=== PATIENT | female | born 1955 | race Caucasian/White ===

== ENCOUNTER 2016-12-18 06:16 | Day surgery (SDC) | payer OTHER, MEDICAID ==
[~2016-12-18 06:16] MED LIST: CLINDAMYCIN 900 MG/DEXTROSE 50 ML IV ONE
[2016-12-18] MEDS ORDERED: LR 1,000 ML IV ONE (06:38)
[2016-12-18] MEDS ORDERED: LIDOCAINE 1% 2 ML INJ ID PRN (06:38)
[2016-12-18] MEDS ORDERED: PROTAMINE SULFATE 50 MG/5 ML VIAL IVP ONE (07:03)
[2016-12-18] MEDS ORDERED: PAPAVERINE HCL 60 MG/2 ML SDV ONE (07:03)
[2016-12-18] MEDS ORDERED: THROMBIN (BOVINE) 20,000 UNIT SPRAY TP ONE (07:03)
[2016-12-18] MEDS ORDERED: THROMBIN (BOVINE) 5,000 UNIT VIAL TP ONE (07:03)
[2016-12-18] MEDS ORDERED: BUPIVACAINE 0.5% 30 ML SDV ONE (07:03)
--- NOTE | 2016-12-18 07:07 | PDHPUP ---
History & Physical Update H&P update statement: This history and physical update is based on an assessment of the patient which was completed after admission or registration (within 24 hours), but prior to the surgery/procedure. H&P update: H&P reviewed & patient examined, no change in patient's condition since H&P completed
[2016-12-18 07:11] LABS: % IMMATURE GRANULYOCYTES 0.8 % (0.0-1.1); ABSOLUTE IMMATURE GRANULOCYTES 0.05 10^3/uL (0.00-0.10); ADD DIFF? NO; ADD MORPH? NO; ADD SCAN? NO; ATYPICAL LYMPHOCYTE FLAG 0 (0-99); FRAGMENT RBC FLAG 0 (0-99); HEMATOCRIT 38.7 % (38.0-47.0); HEMOGLOBIN 12.9 g/dL (12.6-16.3); LEFT SHIFT FLG 0 (0-99); LIPEMIA HEMOLYSIS FLAG 80 (0-99); MEAN CELL HEMOGLOBIN 32.2 pg (27.9-34.1); MEAN CELL HEMOGLOBIN CONCENTR. 33.3 g/dL (32.4-36.7); MEAN CELL VOLUME 96.5 fL (81.5-99.8); MEAN PLATELET VOLUME 10.1 fL (8.7-11.7); PLATELET CLUMPS FLAG 10 (0-99); PLATELET COUNT 168 10^3/uL (150-400); RED BLOOD CELL COUNT 4.01 10^6/uL (4.18-5.33); RED CELL DISTRIBUTION WIDTH 12.5 % (11.5-15.2)
[2016-12-18 07:25] LABS: ANION GAP 12 mEq/L (8-16); CARBON DIOXIDE 17 mEq/l (22-31); CHLORIDE 111 mEq/L (97-110); CREATININE 3.4 mg/dL (0.6-1.0); GLOMERULAR FILTRATION RATE 14; GLUCOSE 121 mg/dL (70-100); POTASSIUM 4.4 mEq/L (3.5-5.2); SODIUM 140 mEq/L (134-144)
[2016-12-18] MEDS ORDERED: MIDAZOLAM 2 MG/2 ML VIAL IVP ONE (07:59)
--- NOTE | 2016-12-18 07:59 | PDANEPAE ---
ANE History of Present Illness left AVF ANE Past Medical History - Cardiovascular History Hx Hypertension: Yes Hx Arrhythmias: No Hx Chest Pain: No Hx Coronary Artery / Peripheral Vascular Disease: No Hx CHF / Valvular Disease: No Hx Palpitations: No - Pulmonary History Hx COPD: No Hx Asthma/Reactive Airway Disease: No Hx Recent Upper Respiratory Infection: No Hx Oxygen in Use at Home: No Hx Sleep Apnea: No Sleep Apnea Screening Result - Last Documented: Negative Pulmonary History Comment: PT HAS 02 BUT DOES NOT USE - Neurologic History Hx Cerebrovascular Accident: No Hx Seizures: No Hx Dementia: No - Endocrine History Hx Diabetes: Yes Endocrine History Comment: TYPE 2 - Renal History Hx Renal Disorders: Yes Renal History Comment: DIALYSIS - Liver History Hx Hepatic Disorders: No - Neurological & Psychiatric Hx Hx Neurological and Psychiatric Disorders: Yes Neurological / Psychiatric History Comment: PT LOST DAUGHTER IN CLIMBING ACCIDENT LAST YEAR - Cancer History Hx Cancer: No - Congenital Disorder History Hx Congenital Disorders: No - GI History Hx Gastrointestinal Disorders: No - Other Health History Other Health History: BRUISES EASILY - Chronic Pain History Chronic Pain: No - Surgical History Prior Surgeries: TUBAL LIGATION. MULTIPLE ORAL SURGERIES ANE Review of Systems Review of systems is: negative Review of Systems: - Exercise capacity Exercise capacity: >=4 METS METS (RN): 4 METS ANE Patient History - Allergies Allergies/Adverse Reactions: clindamycin Allergy (Verified 12/18/16 06:44) Penicillins Allergy (Verified 06/11/14 12:42) - Home Medications Home Medications: FLUPHENAZINE HCL 10/15/13 [Last Taken 12/17/16] Insulin 10/15/13 [Last Taken 12/17/16] Lisinopril 10/15/13 [Last Taken 12/17/16] Synthroid 10/15/13 [Last Taken 12/17/16] TEGretol (RX) 10/15/13 [Last Taken 12/17/16] Clindamycin 04/15/15 [Last Taken Unknown] - NPO status NPO Status: no food or drink >8 hours NPO Since - Liquids (Date): 12/18/16 NPO Since - Liquids (Time): 05:00 NPO Since - Solids (Date): 12/17/16 NPO Since - Solids (Time): 23:00 - Anes Hx Anes Hx: no prior problems - Smoking Hx Smoking Status: Current every day smoker - Alcohol Use Alcohol Use: None - Family Anes Hx Family Hx Anesthesia Complications: NONE ANE Labs/Vital Signs - Labs Result Diagrams: 12/18/16 06:55 12/18/16 06:55 - Vital Signs Blood Pressure: 101/70 Heart Rate: 71 Respiratory Rate: 16 O2 Sat (%): 93 Height: 165.1 cm Weight: 72.575 kg ANE Physical Exam - Airway Neck exam: FROM Mallampati Score: Class 1 - Pulmonary Pulmonary: no respiratory distress - Cardiovascular Cardiovascular: regular rate and rhythym - ASA Status ASA Status: III ANE Anesthesia Plan Anesthesia Plan: GA w LMA
[2016-12-18] MEDS ORDERED: ceFAZolin 2 GM/DEXTROSE 100 ML IV ONE (08:01)
[2016-12-18] MEDS ORDERED: MIDAZOLAM 2 MG/2 ML VIAL ONE (08:02)
[2016-12-18] MEDS ORDERED: PROPOFOL 200 MG/20 ML VIAL ONE (08:03)
[2016-12-18] MEDS ORDERED: LIDOCAINE 2% 5 ML SDV ONE (08:03)
[2016-12-18] MEDS ORDERED: fentaNYL 100 MCG/2 ML INJ ONE (08:03)
[2016-12-18] MEDS ORDERED: ONDANSETRON 4 MG/2 ML VIAL IVP PRN (09:03)
[2016-12-18] MEDS ORDERED: fentaNYL 100 MCG/2 ML INJ IVP PRN (09:03)
[2016-12-18] MEDS ORDERED: HYDROmorphONE/DILAUDID 1 MG/ML INJ IVP PRN (09:03)
[2016-12-18] MEDS ORDERED: ALBUTEROL 3 ML DEYVIAL IH PRN (09:03)
[2016-12-18] MEDS ORDERED: NALOXONE HCL 0.4 MG/ML INJ IVP PRN (09:03)
[2016-12-18] MEDS ORDERED: OXYCODONE/APAP 5/325 TAB PO PRN (09:03)
[2016-12-18] MEDS ORDERED: ONDANSETRON 4 MG/2 ML VIAL ONE (09:22)
[2016-12-18] MEDS ORDERED: PHENYLEPHRINE HCL 100 MCG/ML SYR ONE (09:22)
[2016-12-18] MEDS ORDERED: epHEDrine SULFATE 10 MG/ML SYR ONE ×2 (09:22)
--- NOTE | 2016-12-18 09:52 | POSTOPPROG ---
Post Op Note Date of Operation: 12/18/16 Surgeon: Angus Kwok [employer] Driver: Carmela Thomas Anesthesiologist: Alessandro Lambert Anesthesia: GET(General Endotracheal) Pre-op Diagnosis: CRF Post-op Diagnosis: same Procedure: LUE radiocephalic AVF Findings: fair even thrill Inf/Abcess present in the surg proc area at time of surgery?: No EBL: Minimal Complications: none
[2016-12-18] MEDS ORDERED: OXYCODONE/APAP 5/325 TAB ONE (10:44)
--- NOTE | 2016-12-18 11:07 | GOP ---
[f rep st] OPERATIVE REPORT DATE OF OPERATION: 12/18/2016 SURGEON: Angus Kwok MD PROFESSOR OF MEDICINE: MIKAELA Bright ANESTHESIOLOGIST: Dr. Lambert PREOPERATIVE DIAGNOSIS: Chronic renal failure. POSTOPERATIVE DIAGNOSIS: Chronic renal failure. PROCEDURE PERFORMED: 1. Left arm venous mapping with ultrasound. 2. A left radiocephalic arteriovenous fistula. FINDINGS: Patient was found to have a small but adequate cephalic vein at the wrist. It was no bett er above the antecubital space. DESCRIPTION OF PROCEDURE: Patient taken to the operating room where she received satisfactory genera l endotracheal anesthesia by Dr. Lambert. She was placed in supine position with the left arm outst retched on arm board, prepped and draped in usual sterile fashion. The veins of the left arm were ma pped with the ultrasound. The cephalic vein above and below the antecubital space was approximately 3 mm. The cephalic vein was quite a bit bigger at 5.5 mm above the antecubital space. Elected to tr y a radiocephalic vein AV fistula since the radial artery was quite good at the wrist, in spite the p atient being diabetic. The incision was made just above the wrist over the radial artery. Dissectio n was carried down through the fascia. It was encircled with vessel loops. The cephalic vein was di ssected free underneath the radial flap. It was mobilized over to the radial artery. The patient wa s systemically heparinized. After adequate circulation time, the vessels were occluded with vessel l oops. A [id number] anastomosis was made between the cephalic vein and the radial artery with a run bernice 6-0 Prolene suture. The vein had been checked with a 3 mm dilator, which passed easily up the f orearm. Flow was first established through the AV fistula, then back down the hand. The hand remain ed pink, and a good distal pulse in the radial artery and flow in the AV fistula. Hemostasis was ass ured. The heparin was reversed with protamine. Topical thrombin was placed in the wound. The wound was closed with a 3-0 Vicryl. It was infiltrated with 0.5% Marcaine, and the skin was closed with 4 -0 Monocryl subcuticular stitch. The wound was dressed with some Dermabond. She tolerated procedure well, was taken to recovery room in good condition. There were no complications. Copy requested to: Dr. Cruz /[id number]/MODL
[2016-12-18 11:55] VITALS: BP 126/76; PULSE 76; RESP 16; TEMP 97.6; O2SAT 90
== END 2016-12-18 11:45 | disposition home or self-care (01) ==
LOC: FSGY 06:16
PROVIDERS: ATTEND Surgery
PROC: 03180ZD Bypass Left Brachial Artery to Upper Arm Vein, Open Approach (ICD-10-PCS; principal; 2016-12-18 08:00)
DX: N18.6 End stage renal disease (principal); E11.22 Type 2 diabetes mellitus with diabetic chronic kidney disease; I12.9 Hypertensive chronic kidney disease with stage 1 through stage 4 chronic kidney disease, or unspecified chronic kidney disease; F31.9 Bipolar disorder, unspecified; E03.9 Hypothyroidism, unspecified; Z79.4 Long term (current) use of insulin
CPT/HCPCS: J1644; J2250; J2370; J2405; J2440; J2704; J2720; J3010

== ENCOUNTER 2017-02-12 08:07 | Day surgery (SDC) | payer OTHER, MEDICAID ==
[2017-02-12] MEDS ORDERED: levOFLOXACIN 500 MG/DEXTROSE 100 ML IV ONE (08:38)
[2017-02-12] MEDS ORDERED: LR 1,000 ML IV ONE (08:39)
[2017-02-12] MEDS ORDERED: LIDOCAINE 1% 2 ML INJ ID PRN (08:39)
[2017-02-12] MEDS ORDERED: PAPAVERINE HCL 60 MG/2 ML SDV ONE (08:46)
[2017-02-12] MEDS ORDERED: PROTAMINE SULFATE 50 MG/5 ML VIAL IVP ONE (08:46)
[2017-02-12] MEDS ORDERED: THROMBIN (BOVINE) 5,000 UNIT VIAL TP ONE (08:46)
[2017-02-12] MEDS ORDERED: BUPIVACAINE 0.5% 30 ML SDV ONE (08:46)
[2017-02-12] MEDS ORDERED: THROMBIN (BOVINE) 20,000 UNIT SPRAY TP ONE (08:47)
[2017-02-12] MEDS ORDERED: MIDAZOLAM 2 MG/2 ML VIAL IVP ONE (09:12)
--- NOTE | 2017-02-12 09:12 | PDANEPAE ---
ANE History of Present Illness LUE AV fistula ANE Past Medical History - Cardiovascular History Hx Hypertension: Yes Hx Arrhythmias: No Hx Chest Pain: No Hx Coronary Artery / Peripheral Vascular Disease: No Hx CHF / Valvular Disease: No Hx Palpitations: No - Pulmonary History Hx COPD: No Hx Asthma/Reactive Airway Disease: No Hx Recent Upper Respiratory Infection: No Hx Oxygen in Use at Home: No Hx Sleep Apnea: No Pulmonary History Comment: PT HAS 02 BUT DOES NOT USE - Neurologic History Hx Cerebrovascular Accident: No Hx Seizures: No Hx Dementia: No - Endocrine History Hx Diabetes: Yes Endocrine History Comment: TYPE 2 - Renal History Hx Renal Disorders: Yes Renal History Comment: DIALYSIS - Liver History Hx Hepatic Disorders: No - Neurological & Psychiatric Hx Hx Neurological and Psychiatric Disorders: Yes Neurological / Psychiatric History Comment: PT LOST DAUGHTER IN CLIMBING ACCIDENT LAST YEAR - Cancer History Hx Cancer: No - Congenital Disorder History Hx Congenital Disorders: No - GI History Hx Gastrointestinal Disorders: No - Other Health History Other Health History: BRUISES EASILY - Chronic Pain History Chronic Pain: No - Surgical History Prior Surgeries: TUBAL LIGATION. MULTIPLE ORAL SURGERIES ANE Review of Systems Review of systems is: negative Review of Systems: - Exercise capacity Exercise capacity: >=4 METS ANE Patient History - Allergies Allergies/Adverse Reactions: clindamycin Allergy (Verified 12/18/16 06:44) Penicillins Allergy (Verified 06/11/14 12:42) - Home Medications Home medications: home medication list seen and reviewed Home Medications: FLUPHENAZINE HCL 10/15/13 [Last Taken 02/11/17 21:00] Insulin 10/15/13 [Last Taken 02/11/17 21:00] Lisinopril 10/15/13 [Last Taken 02/11/17 10:00] Synthroid 10/15/13 [Last Taken 02/11/17 09:00] TEGretol (RX) 10/15/13 [Last Taken 02/11/17 22:00] - NPO status NPO Status: no food or drink >8 hours - Anes Hx Anes Hx: no prior problems - Smoking Hx Smoking Status: Current every day smoker - Family Anes Hx Family Anes Hx: none Family Hx Anesthesia Complications: NONE ANE Labs/Vital Signs - Labs Result Diagrams: 02/12/17 08:53 - Vital Signs Height: 152.4 cm Weight: 72.575 kg ANE Physical Exam - Airway Neck exam: FROM Mallampati Score: Class 2 Mouth exam: dentures - Pulmonary Pulmonary: no respiratory distress - Cardiovascular Cardiovascular: regular rate and rhythym - ASA Status ASA Status: III ANE Anesthesia Plan Anesthesia Plan: GA w LMA
[2017-02-12] MEDS ORDERED: MIDAZOLAM 2 MG/2 ML VIAL ONE (09:13)
[2017-02-12 09:19] LABS: ANION GAP 12 mEq/L (8-16); CALCIUM 8.7 mg/dL (8.5-10.4); CARBON DIOXIDE 21 mEq/l (22-31); CHLORIDE 110 mEq/L (97-110); CREATININE 3.1 mg/dL (0.6-1.0); GLOMERULAR FILTRATION RATE 15; GLUCOSE 84 mg/dL (70-100); POTASSIUM 4.2 mEq/L (3.5-5.2); SODIUM 143 mEq/L (134-144)
[2017-02-12] MEDS ORDERED: DEXAMETHASONE 4 MG/ML VIAL ONE (09:23)
[2017-02-12] MEDS ORDERED: fentaNYL 100 MCG/2 ML INJ ONE ×2 (09:23→11:38)
[2017-02-12] MEDS ORDERED: PROPOFOL 200 MG/20 ML VIAL ONE (09:23)
[2017-02-12] MEDS ORDERED: LIDOCAINE 2% 100 MG/5 ML SYR ONE (09:23)
[2017-02-12] MEDS ORDERED: ONDANSETRON 4 MG/2 ML VIAL ONE ×2 (09:23→11:48)
[2017-02-12] MEDS ORDERED: PHENYLEPHRINE HCL 100 MCG/ML SYR ONE (09:40)
[2017-02-12] MEDS ORDERED: MEPERIDINE 25 MG/ML SYR IVP PRN (10:45)
[2017-02-12] MEDS ORDERED: PROMETHAZINE HCL 25 MG/ML INJ IVP PRN (10:45)
[2017-02-12] MEDS ORDERED: ONDANSETRON 4 MG/2 ML VIAL IVP PRN (10:45)
[2017-02-12] MEDS ORDERED: NALOXONE HCL 0.4 MG/ML INJ IVP PRN (10:45)
[2017-02-12] MEDS ORDERED: OXYCODONE/APAP 5/325 TAB PO PRN (10:45)
[2017-02-12] MEDS ORDERED: ACETAMINOPHEN 500 MG TAB PO PRN (10:45)
[2017-02-12] MEDS ORDERED: HYDROmorphONE/DILAUDID 1 MG/ML INJ IVP PRN (10:45)
[2017-02-12] MEDS ORDERED: LABETALOL HCL 50 MG/10 ML SYR IVP PRN (10:45)
[2017-02-12] MEDS ORDERED: ALBUTEROL 3 ML DEYVIAL IH PRN (10:45)
[2017-02-12] MEDS ORDERED: HYDROCODONE/APAP 5/325 TAB PO PRN (10:45)
[2017-02-12] MEDS ORDERED: DEXAMETHASONE 4 MG/ML VIAL IVP PRN (10:45)
--- NOTE | 2017-02-12 10:47 | POSTANESTH ---
Post Anesthetic Evaluation Cardiovascular Status: Similar to Pre-Op Cond Respiratory Status: Similar to Pre-op Cond. Level of Consciousness/Mental Status: Can Participate in Eval, Moderately Sleepy Pain Control: Adequate, Prn Tx Ordered Nausea/Vomiting Control: Adequate, Prn Tx Ordered Complications Possibly Related to Anesthesia: None Noted
[2017-02-12] MEDS: fentaNYL 100 MCG/2 ML INJ IVP PRN ×2 (11:41→11:54)
[2017-02-12] MEDS ORDERED: OXYCODONE/APAP 5/325 TAB ONE (11:44)
[2017-02-12 13:10] VITALS: BP 106/72
[2017-02-12 13:30] VITALS: PULSE 74; RESP 16; TEMP 97.8; O2SAT 93
--- NOTE | 2017-02-24 12:37 | GOP ---
[f rep st] OPERATIVE REPORT DATE OF OPERATION: SURGEON: Angus Kwok MD RECEPTIONIST NURSE: Carmela Thomas, PAC. ANESTHESIOLOGIST: Dr. Coronel. PREOPERATIVE DIAGNOSIS: 1. Chronic renal failure. 2. Failed radiocephalic arteriovenous fistula. POSTOPERATIVE DIAGNOSIS: 1. Chronic renal failure. 2. Failed radiocephalic arteriovenous fistula. PROCEDURE PERFORMED: Ultrasound vein mapping of the left arm, with a left basilic vein transposition arteriovenous fistula. FINDINGS: DESCRIPTION OF PROCEDURE: Patient taken to the operating room, where she received satisfactory gener al endotracheal anesthesia by Dr. Coronel. She was placed in a supine position, with the left arm o utstretched on an arm board, prepped and draped in the usual sterile fashion. Using ultrasound, the veins of the arm were evaluated, as well as a radiocephalic fistula, which did not appear to have ashlee quate flow. In the upper arm, the cephalic vein was not adequate either, and the basilic vein was se lected. A longitudinal incision was made over the basilic vein in the medial aspect of the arm. It was dissected free for several inches, and then elevated up. Multiple branches were ligated and divi ded. The vein was then transposed to a more superficial and anterior position. The brachial artery had been dissected free, controlled with vessel loops. The patient was systemically heparinized. An end-to-side anastomosis was made between the basilic vein and the brachial artery using running 6-0 Prolene suture. Flow was first established through the AV fistula, and then back down the arm to the hand. Maintained a good radial pulse and a good flow in the fistula, which was sitting in a subderm al position. Hemostasis was assured. Heparin was reversed with protamine. The wound was infiltrate d with 0.5% Marcaine. Some topical thrombin was sprayed over the wound, and the wound was closed wit h a running 3-0 Vicryl for the subcutaneous tissue, skin shikha for the skin. A 15 round silicone J P drain was brought out through a separate stab incision, secured to the skin with a silk suture. David mendez tolerated the procedure well, was taken to the recovery room in good condition. /[id number]/MODL
== END 2017-02-12 13:15 | disposition home or self-care (01) ==
LOC: FSGY 08:07
PROVIDERS: ATTEND Surgery
PROC: 03180ZD Bypass Left Brachial Artery to Upper Arm Vein, Open Approach (ICD-10-PCS; principal; 2017-02-12 09:45)
DX: N18.6 End stage renal disease (principal); F17.200 Nicotine dependence, unspecified, uncomplicated; Z88.0 Allergy status to penicillin
CPT/HCPCS: J1100; J1644; J1956; J2001; J2250; J2370; J2405; J2440; J2704; J2720; J3010

== ENCOUNTER → 2017-11-29 | Outpatient (CLI) | payer OTHER, MEDICAID | LOC: FIMAGING 08:59 | PROVIDERS: ATTEND Internal Medicine Nephrology | DX: R60.0 Localized edema (principal) ==

== ENCOUNTER → 2017-12-12 | Outpatient (CLI) | payer OTHER, MEDICAID | LOC: FIMAGING 10:34 | PROVIDERS: ATTEND Internal Medicine Nephrology | DX: M25.472 Effusion, left ankle (principal); N20.0 Calculus of kidney; E27.9 Disorder of adrenal gland, unspecified; K57.30 Diverticulosis of large intestine without perforation or abscess without bleeding; I77.89 Other specified disorders of arteries and arterioles ==

== ENCOUNTER → 2018-06-19 | Emergency (ER) | payer OTHER, MEDICAID ==
[2018-06-19 17:08] VITALS: BP 139/80
== END | disposition home or self-care (01) ==
DX: Z53.21 Procedure and treatment not carried out due to patient leaving prior to being seen by health care provider (principal)

== ENCOUNTER 2018-06-23 11:54 | Emergency (ER) | payer OTHER, MEDICAID ==
[2018-06-23] MEDS ORDERED: NS 2,300 ML IV ONE (12:33)
[2018-06-23] MEDS ORDERED: HYDROmorphONE/DILAUDID 2 MG/ML INJ IVP ONE ×2 (12:35→15:36)
--- NOTE | 2018-06-23 12:39 | EDPHY ---
H & P Stated Complaint: L upper arm swelling/red/hot near 1y/o fistula site. Denies trauma. Time Seen by Provider: 06/23/18 12:28 HPI/ROS: CHIEF COMPLAINT: Left arm infection HISTORY OF PRESENT ILLNESS: The patient is a 63-year-old female with a history of poorly controlled type 2 diabetes who comes to the emergency department complaining of erythema and pain on the skin at the location of a fistula in her left upper arm. She states that the fistula was placed a year ago in case she required hemodialysis. She has never yet required hemodialysis. 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 She states that about a week ago she felt like it stopped pulsating and then over the last 2 days there has been erythema of the skin above the fistula. She states that it is been warm to the touch but she has not had a generalized fever. No chest pain or shortness of breath. She does mention a decreased appetite. Severity: Moderate Modifying factors: Gradually worsening REVIEW OF SYSTEMS: Constitutional: See HPI EENTM: denies: blurred vision, double vision, nose congestion Respiratory: denies: cough, shortness of breath Cardiac: denies: chest pain, irregular heart rate, lightheadedness, palpitations Gastrointestinal/Abdominal: denies: abdominal pain, diarrhea, nausea, vomiting, blood streaked stools Genitourinary: denies: dysuria, frequency, hematuria, pain Musculoskeletal: See HPI Skin: denies: lesions, rash, jaundice, bruising Neurological: denies: headache, numbness, paresthesia, tingling, dizziness, weakness Hematologic/Lymphatic: denies: blood clots, easy bleeding, easy bruising Immunologic/allergic: denies: HIV/AIDS, transplant 10 systems reviewed and negative except as noted EXAM: GENERAL: Well-appearing, well-nourished and in no acute distress. HEAD: Atraumatic, normocephalic. EYES: Pupils equal round and reactive to light, extraocular movements intact, sclera anicteric, conjunctiva are normal. ENT: TMs normal, nares patent, oropharynx clear without exudates. Moist mucous membranes. NECK: Normal range of motion, supple without lymphadenopathy or JVD. LUNGS: Breath sounds clear to auscultation bilaterally and equal. No wheezes rales or rhonchi. HEART: Regular rate and rhythm without murmurs, rubs or gallops. ABDOMEN: Soft, nontender, normoactive bowel sounds. No guarding, no rebound. No masses appreciated. BACK: No CVA tenderness, no spinal tenderness, step-offs or deformities EXTREMITIES: Fistula in place in left upper arm. Does appear to be some palpable thrill. Overlying erythema. No palpable fluctuance or abscess. Very tender. Normal range of motion. NEUROLOGICAL: Cranial nerves II through XII grossly intact. Normal speech, normal gait. 5/5 strength, normal movement in all extremities, normal sensation , normal reflexes PSYCH: Normal mood, normal affect. SKIN: See above Source: Patient Exam Limitations: No limitations - Personal History Current Tetanus/Diphtheria Vaccine: No Tetanus Vaccine Date: 2004 - Medical/Surgical History Hx Asthma: No Hx Chronic Respiratory Disease: No Hx Diabetes: Yes Hx Cardiac Disease: Yes Hx Renal Disease: Yes Hx Cirrhosis: No Hx Alcoholism: No Hx HIV/AIDS: No Hx Splenectomy or Spleen Trauma: No Other PMH: PMH- ARF, DM II, hypothyroid, HTN, bipolar. PSH- tubal ligation - Family History Significant Family History: No pertinent family hx - Social History Smoking Status: Current every day smoker Alcohol Use: None Constitutional: Initial Vital Signs Temperature (C) 36.5 C 06/23/18 12:06 Heart Rate 68 06/23/18 12:06 Respiratory Rate 18 06/23/18 12:06 Blood Pressure 136/65 H 06/23/18 12:06 O2 Sat (%) 97 06/23/18 12:06 O2 Delivery Mode Room Air Allergies/Adverse Reactions: clindamycin Allergy (Verified 06/23/18 12:06) Penicillins Allergy (Verified 06/23/18 12:06) Home Medications: Medication Instructions Recorded Clotrimazole 1% 15 gm TP BID #1 cream 10/15/13 Doxycycline Hyclate 100 mg PO BID #14 cap 10/15/13 FLUPHENAZINE HCL 10/15/13 Hydrocodone/APAP 5/325 [[place] 1 each PO Q4-6PRN PRN #14 tab 10/15/13 5/325 (*)] Insulin 10/15/13 Lisinopril 10/15/13 Synthroid 10/15/13 TEGretol (RX) 10/15/13 Hydrocodone/APAP 5/325 [[place] 1 - 2 tab PO Q4-6PRN PRN #10 tab 06/11/14 5/325 (RX)] HYDROcodone/APAP 10/325 [[place] 1 - 2 each PO Q4-6PRN PRN #20 tab 04/15/15 10/325] oxyCODONE/APAP 5/325 [Percocet 1 - 2 tab PO Q4HRS PRN #20 tab 12/18/16 5/325 (*)] Cephalexin [Keflex] 500 mg PO TID #21 cap 06/23/18 Hydrocodone/APAP 5/325 [[place] 1 - 2 tab PO Q4H PRN #7 tab 06/23/18 5/325 (RX)] Medical Decision Making - Diagnostics Imaging Results: Imaging Impressions Extremity Venous Study 06/23/18 14:58 Impression: Mostly occluded left upper arm fistula with what appears to be fresh thrombus. Findings and recommendations discussed with Luis Ludwig at 3:50 p.m. on 06/23. Final report concurs with initial preliminary interpretation. Imaging: Discussed imaging studies w/ director call Radiologist ED Course/Re-evaluation: I do have concern of fistula infection or thrombosis. Will order ultrasound and septic workup. Lab work and vital signs are reassuring. I discussed the case with Dr. Sundar AKINS. She recommends antibiotics and will follow up in the office this week. I spoke with the patient and her . They agree with this plan and will make an appointment. She is asking for narcotic pain medications. Also encouraged warm compresses. She cannot take ibuprofen.. Differential Diagnosis: Partial list of the Differential diagnosis considered include but were not limited to; phlebitis, abscess, clotted fistula and although unlikely based on the history and physical exam, I also considered sepsis, cellulitis. I discussed these differential diagnoses and the plan with the patient as well as the usual and expected course. The patient understands that the diagnosis is provisional and that in medicine we are not always correct and that further workup is often warranted. Usual and customary warnings were given. All of the patient's questions were answered. The patient was instructed to return to the emergency department should the symptoms at all worsen or return, otherwise to followup with the physician as we discussed. - Data Points Laboratory Results: Laboratory Results 06/23/18 12:40 06/23/18 12:40 06/23/18 06/23/18 06/23/18 14:48 12:40 12:40 WBC RBC Hgb Hct MCV MCH MCHC RDW Plt Count MPV Neut % (Auto) Lymph % (Auto) [place] % (Auto) Eos % (Auto) Baso % (Auto) Nucleat RBC Rel Count Absolute Neuts (auto) Absolute Lymphs (auto) Absolute Monos (auto) Absolute Eos (auto) Absolute Basos (auto) Absolute Nucleated RBC Immature Gran % Immature Gran # PT 13.2 SEC SEC (12.0-15.0) INR 1.04 (0.83-1.16) APTT 28.4 SEC SEC (23.0-38.0) VBG Lactic Acid Sodium 138 mEq/L mEq/L (135-145) Potassium 4.1 mEq/L mEq/L (3.5-5.2) Chloride 112 mEq/L H mEq/L (97-110) Carbon Dioxide 17 mEq/l L mEq/l (22-31) Anion Gap 9 mEq/L mEq/L (6-14) BUN 43 mg/dL H mg/dL (7-23) Creatinine 2.7 mg/dL H mg/dL (0.6-1.0) Estimated GFR 18 Glucose 149 mg/dL H mg/dL (70-100) Calcium 8.5 mg/dL mg/dL (8.5-10.4) Total Bilirubin 0.5 mg/dL mg/dL (0.1-1.4) Urine Color PALE YELLOW Urine Appearance CLEAR Urine pH 6.0 (5.0-7.5) Ur Specific [place] 1.003 (1.002-1.030) Urine Protein NEGATIVE (NEGATIVE) Urine Ketones NEGATIVE (NEGATIVE) Urine Blood NEGATIVE (NEGATIVE) Urine Nitrate NEGATIVE (NEGATIVE) Urine Bilirubin NEGATIVE (NEGATIVE) Urine Urobilinogen NEGATIVE EU EU (0.2-1.0) Ur Leukocyte Esterase NEGATIVE (NEGATIVE) Urine RBC NONE SEEN /hpf /hpf (0-3) Urine WBC 1-3 /hpf /hpf (0-3) Ur Epithelial Cells NONE SEEN /lpf /lpf (NONE-1+) Urine Glucose 1+ H (NEGATIVE) 06/23/18 06/23/18 12:40 12:39 WBC 6.81 10^3/uL 10^3/uL (3.80-9.50) RBC 3.77 10^6/uL L 10^6/uL (4.18-5.33) Hgb 11.9 g/dL L g/dL (12.6-16.3) Hct 37.1 % L % (38.0-47.0) MCV 98.4 fL fL (81.5-99.8) MCH 31.6 pg pg (27.9-34.1) MCHC 32.1 g/dL L g/dL (32.4-36.7) RDW 12.7 % % (11.5-15.2) Plt Count 169 10^3/uL 10^3/uL (150-400) MPV 10.0 fL fL (8.7-11.7) Neut % (Auto) 68.6 % % (39.3-74.2) Lymph % (Auto) 21.1 % % (15.0-45.0) [place] % (Auto) 7.9 % % (4.5-13.0) Eos % (Auto) 1.6 % % (0.6-7.6) Baso % (Auto) 0.4 % % (0.3-1.7) Nucleat RBC Rel Count 0.0 % % (0.0-0.2) Absolute Neuts (auto) 4.66 10^3/uL 10^3/uL (1.70-6.50) Absolute Lymphs (auto) 1.44 10^3/uL 10^3/uL (1.00-3.00) Absolute Monos (auto) 0.54 10^3/uL 10^3/uL (0.30-0.80) Absolute Eos (auto) 0.11 10^3/uL 10^3/uL (0.03-0.40) Absolute Basos (auto) 0.03 10^3/uL 10^3/uL (0.02-0.10) Absolute Nucleated RBC 0.00 10^3/uL 10^3/uL (0-0.01) Immature Gran % 0.4 % % (0.0-1.1) Immature Gran # 0.03 10^3/uL 10^3/uL (0.00-0.10) PT INR APTT VBG Lactic Acid 1.8 mmol/L mmol/L (0.7-2.1) Sodium Potassium Chloride Carbon Dioxide Anion Gap BUN Creatinine Estimated GFR Glucose Calcium Total Bilirubin Urine Color Urine Appearance Urine pH Ur Specific [place] Urine Protein Urine Ketones Urine Blood Urine Nitrate Urine Bilirubin Urine Urobilinogen Ur Leukocyte Esterase Urine RBC Urine WBC Ur Epithelial Cells Urine Glucose Medications Given: Discontinued Medications Cephalexin HCl (Keflex) 500 mg PO EDNOW ONE PRN Reason: Protocol Stop: 06/23/18 16:06 Last Admin: 06/23/18 16:15 Dose: 500 mg Hydromorphone HCl (Dilaudid) 0.5 mg IVP EDNOW ONE Stop: 06/23/18 12:36 Last Admin: 06/23/18 12:51 Dose: 0.5 mg Hydromorphone HCl (Dilaudid) 0.5 mg IVP EDNOW ONE Stop: 06/23/18 15:37 Last Admin: 06/23/18 15:39 Dose: 0.5 mg Sodium Chloride (Ns) 2,300 mls @ 383.3333 mls/hr 30 ml/kg infuse over 6 hr ( 2300 ml) IV EDNOW ONE PRN Reason: Protocol Stop: 06/23/18 18:32 Last Admin: 06/23/18 12:49 Dose: 2,300 mls Departure - Departure Disposition: Home, Routine, Self-Care Clinical Impression: Phlebitis Arteriovenous fistula thrombosis Qualifiers: Encounter type: initial encounter Qualified Code(s): T82.868A - Thrombosis due to vascular prosthetic devices, implants and grafts, initial encounter Condition: Fair Instructions: Venous Thromboembolism (ED), Phlebitis (ED) Referrals: [facility],. [Primary Care Provider] - As per Instructions Angus Kwok MD [Medical Doctor] - As per Instructions Prescriptions: Cephalexin [Keflex] 500 mg PO TID #21 cap Hydrocodone/APAP 5/325 [[place] 5/325 (RX)] 1 - 2 tab PO Q4H PRN #7 tab PRN Reason: Pain, Moderate
[2018-06-23 12:53] LABS: PLATELET COUNT 169 10^3/uL (150-400)
[2018-06-23 13:03] LABS: INR 1.04 (0.83-1.16); PROTIME(PATIENT) 13.2 SEC (12.0-15.0)
[2018-06-23 15:54] VITALS: BP 103/74
[2018-06-23] MEDS ORDERED: CEPHALEXIN 500 MG CAP PO ONE (16:05)
== END 2018-06-23 16:22 | disposition home or self-care (01) ==
DX: T82.868A Thrombosis due to vascular prosthetic devices, implants and grafts, initial encounter (principal); E86.9 Volume depletion, unspecified; I10 Essential (primary) hypertension; E11.9 Type 2 diabetes mellitus without complications; E03.9 Hypothyroidism, unspecified; F17.200 Nicotine dependence, unspecified, uncomplicated; Y82.8 Other medical devices associated with adverse incidents; Z88.0 Allergy status to penicillin
CPT/HCPCS: 93971; 96361; 96374; 96376; 99285; J1170

== ENCOUNTER 2018-06-26 18:44 | Inpatient (IN) | payer OTHER, MEDICAID ==
[2018-06-26] MEDS ORDERED: NS 1,000 ML IV ONE (19:08)
--- NOTE | 2018-06-26 19:15 | EDPHY ---
H & P Stated Complaint: Dr. Cruz sent for direct admit to hospital; infected fistula Time Seen by Provider: 06/26/18 19:15 HPI/ROS: HPI CHIEF COMPLAINT: AV fistula clot. HISTORY OF PRESENT ILLNESS: This patient very pleasant 63-year-old female, she has chronic kidney disease, in her left arm she has an AV fistula that has clotted. She saw Dr. ELIZABETH Kwok in follow-up care today and was recommend she comes back to the emergency room to be admitted to the hospital to be placed on heparin drip today and tomorrow see Interventional Radiology and have her AV fistula thrombus lysed. However there was some concern that she may have blood in her urine the patient was unsure about this. She does have a urinalysis from June 23 it did not have any blood in it. She does believe that maybe she had some hemorrhoidal bleeding. She denies any vaginal bleeding. She denies any brisk or significant bleeding. She otherwise states she feels fine. She denies chest pain or shortness of breath, denies fever. Past Medical History: Bipolar disorder, chronic kidney disease, diabetes Past Surgical History: Tubal ligation, left arm AV fistula x2. Social History: Ongoing tobacco use Family History: Denies ROS REVIEW OF SYSTEMS: 10 Systems were reviewed and negative with the exception of the elements mentioned in the history of present illness. Exam Constitutional triage nursing summary reviewed, vital signs reviewed, awake/ alert. Eyes normal conjunctivae and sclera, EOMI, PERRLA. HENT normal inspection, atraumatic, moist mucus membranes, no epistaxis, neck supple/ no meningismus, no raccoon eyes. Respiratory clear to auscultation bilaterally, normal breath sounds, no respiratory distress, no wheezing. Cardiovascular rate normal, regular rhythm, no murmur, no edema, distal pulses normal. Gastrointestinal soft, non-tender, no rebound, no guarding, normal bowel sounds, no distension, no pulsatile mass. Genitourinary no CVA tenderness. Musculoskeletal left upper extremity: Good radial pulse, good cap refill, left upper arm bicep region there is an indurated hard fistula site concerning for clot, no midline vertebral tenderness, full range of motion, no calf swelling, no tenderness of extremities, no meningismus, good pulses, neurovascularly intact. Skin pink, warm, & dry, no rash, skin atraumatic. Neurologic awake, alert and oriented x 3, AAOx3, moves all 4 extremities equally, motor intact, sensory intact, CN II-XII intact, normal cerebellar, normal vision, normal speech. Psychiatric normal mood/affect. Heme/Lymph/Immune no lymphadenopathy. Differential Diagnosis: Includes but is not limited to in a particular order thrombosed left arm AV fistula, need for heparin, need for admission, chronic kidney disease Medical Decision Making: Plan for this patient will perform a rectal exam to make sure she does not have a large amount of blood or significant rectal bleeding, basic labs, and will start on heparin admit to the hospitalist service. Re-evaluation: I was able to visualize the patient's urine from the previous visit and this shows no blood. Additionally patient denies any vaginal bleeding. Due to the concern of possible rectal bleeding I did perform a rectal exam. Chapperrone at bedside Leida MADISON. There are no palpable large hemorrhoids. There was no gross blood on exam. Occult blood sent. Plan for heparin drip without bolus. Plan for admission to the hospital. Additionally 1937 I did speak with Dr. Kwok about the patient who is familiar with her and who placed her left AV fistula. He would like her admitted on heparin drip. Admit to the hospitalist service and IR to see tomorrow for thrombolysis. H&H are stable from previous ER visit. Plan for heparin drip. No evidence of patient having significant bleeding at this time. Will watch closely on heparin. Spoke with the hospitalist service they agree to admit Dr. Drummond, and agree with plan. Dr. Kwok Aware IR tomorrow. Source: Patient - Personal History Current Tetanus/Diphtheria Vaccine: Yes Current Tetanus Diphtheria and Acellular Pertussis (TDAP): Yes Tetanus Vaccine Date: 2004 - Medical/Surgical History Hx Asthma: No Hx Chronic Respiratory Disease: No Hx Diabetes: Yes Hx Cardiac Disease: Yes Hx Renal Disease: Yes Hx Cirrhosis: No Hx Alcoholism: No Hx HIV/AIDS: No Hx Splenectomy or Spleen Trauma: No Other PMH: PMH- ARF, DM II, hypothyroid, HTN, bipolar. PSH- tubal ligation - Social History Smoking Status: Current every day smoker Constitutional: Initial Vital Signs Temperature (C) 36.8 C 06/26/18 18:47 Heart Rate 63 06/26/18 18:47 Respiratory Rate 18 06/26/18 18:47 Blood Pressure 143/75 H 06/26/18 18:47 O2 Sat (%) 97 06/26/18 18:47 O2 Delivery Mode Room Air Allergies/Adverse Reactions: clindamycin Allergy (Verified 06/23/18 12:06) Penicillins Allergy (Verified 06/23/18 12:06) Home Medications: Medication Instructions Recorded Cephalexin [Keflex (*)] 500 mg PO TID 06/26/18 Diazepam [Valium 5 MG (*)] 2.5 - 5 mg PO DAILY PRN 06/26/18 Hydrocodone/Acetaminophen 1 each PO Q6H PRN 06/26/18 [Hydrocodon-Acetaminophen 5-325] Insulin Detemir [Levemir Flextouch] 50 unit SQ HS 06/26/18 Levothyroxine [Synthroid 75 mcg 75 mcg PO DAILY06 06/26/18 (*)] Lisinopril [Zestril 10 mg (*)] 5 mg PO DAILY 06/26/18 Nicotine [Nicotine Patch] 1 each TD DAILY 06/26/18 Sevelamer Carbonate 800 mg PO BID 06/26/18 carBAMazepine [Carbamazepine] 200 mg PO DAILY 06/26/18 carBAMazepine [Carbamazepine] 600 mg PO HS 06/26/18 fluPHENAZine HCL [FLUPHENAZINE HCL] 10 mg PO HS 06/26/18 Medical Decision Making - Data Points Laboratory Results: Laboratory Results 06/27/18 03:00 06/27/18 03:00 Medications Given: Hydrocodone Bitart/Acetaminophen ([place] 5/325) 1 tab PO Q6H PRN PRN Reason: BREAKTHRU PAIN Stop: 07/06/18 23:27 Last Admin: 06/28/18 20:43 Dose: 1 tab Carbamazepine (Tegretol) 200 mg PO DAILY [facility] Stop: 12/24/18 08:59 Last Admin: 06/27/18 21:12 Dose: 200 mg Carbamazepine (Tegretol) 600 mg PO HS [facility] Stop: 12/24/18 20:59 Last Admin: 06/28/18 20:45 Dose: 600 mg Cephalexin HCl (Keflex) 250 mg PO TID GERM[facility]N PRN Reason: Protocol Stop: 06/30/18 09:01 Last Admin: 06/28/18 20:43 Dose: 250 mg Fluphenazine HCl (Prolixin) 10 mg PO HS [facility] Stop: 12/24/18 20:59 Last Admin: 06/28/18 20:45 Dose: 10 mg Heparin Sodium (Porcine) (Heparin Injection) 0 unit IVP PRN PRN PRN Reason: re-bolus required by protocol Stop: 12/23/18 20:59 Last Admin: 06/28/18 13:41 Dose: 2,300 units Heparin Sodium (Porcine) (Heparin 50 Units/Ml (Premix)) 500 mls @ 0 mls/hr IV CONT GERMÁN; Per Protocol PRN Reason: Protocol Stop: 12/23/18 20:59 Last Admin: 06/28/18 16:13 Dose: 500 mls Sodium Chloride (Ns) 1,000 mls @ 30 mls/hr IV CONT GERM[facility] Stop: 12/24/18 09:29 Last Admin: 06/27/18 23:10 Dose: 1,000 mls Insulin Glargine (Lantus Syringe) 30 units SC HS [facility] Stop: 12/24/18 20:59 Last Admin: 06/28/18 21:01 Dose: 30 units Insulin Human Lispro (Humalog Lispro) 0 unit SC TIDMEAL GERMÁN PRN Reason: Protocol Stop: 12/24/18 07:59 Last Admin: 06/28/18 17:57 Dose: Not Given Levothyroxine Sodium (Synthroid) 75 mcg PO DAILY06 [facility] Stop: 12/24/18 05:59 Last Admin: 06/28/18 06:48 Dose: 75 mcg Nicotine (Nicoderm Cq) 14 mg TD DAILY [facility] Stop: 12/24/18 11:44 Last Admin: 06/28/18 10:06 Dose: Not Given Sevelamer HCl (Renagel) 800 mg PO BID [facility] Stop: 12/24/18 08:59 Last Admin: 06/28/18 20:44 Dose: 800 mg Discontinued Medications Carbamazepine (Tegretol) 600 mg PO EDNOW ONE Stop: 06/26/18 22:31 Last Admin: 06/26/18 22:37 Dose: 600 mg Carbamazepine (Tegretol) 600 mg PO HS [facility] Stop: 12/23/18 23:29 Last Admin: 06/27/18 02:32 Dose: Not Given Cephalexin HCl (Keflex) 500 mg PO TID [facility] PRN Reason: Protocol Stop: 07/27/18 08:59 Last Admin: 06/27/18 09:17 Dose: 500 mg Fentanyl (Sublimaze) 0 mcg IVP ONCALL PRN PRN Reason: Per provider during procedure Stop: 06/27/18 10:27 Last Admin: 06/27/18 11:54 Dose: 100 mcg Fluphenazine HCl (Prolixin) 10 mg PO EDNOW ONE Stop: 06/26/18 22:31 Last Admin: 06/26/18 22:37 Dose: 10 mg Fluphenazine HCl (Prolixin) 10 mg PO HS [facility] Stop: 12/23/18 23:29 Last Admin: 06/27/18 02:32 Dose: Not Given Sodium Chloride (Ns) 1,000 mls @ 0 mls/hr IV EDNOW ONE; Wide Open PRN Reason: Protocol Stop: 06/26/18 19:09 Last Admin: 06/26/18 19:29 Dose: 1,000 mls Heparin Sodium (Porcine) (Heparin 50 Units/Ml (Premix)) 500 mls @ 0 mls/hr IV EDNOW ONE; Per Protocol PRN Reason: Protocol Stop: 06/26/18 19:50 Last Admin: 06/26/18 20:13 Dose: 500 mls Midazolam HCl (Versed) 0 mg IVP ONCALL PRN PRN Reason: Per provider during procedure Stop: 06/27/18 10:27 Last Admin: 06/27/18 11:54 Dose: 2 mg Point of Care Test Results: Chemistry 06/27/18 06/27/18 14:57 08:11 POC Glucose 103 mg/dL H mg/dL 100 mg/dL mg/dL (70-100) (70-100) Departure - Departure Disposition: [facility] Inpatient Acute Clinical Impression: Clotted renal dialysis AV graft Qualifiers: Encounter type: initial encounter Qualified Code(s): T82.868A - Thrombosis due to vascular prosthetic devices, implants and grafts, initial encounter Condition: Fair
[2018-06-26 19:33] LABS: PLATELET COUNT 190 10^3/uL (150-400)
[2018-06-26 19:41] LABS: INR 1.02 (0.83-1.16)
[2018-06-26] MEDS ORDERED: HEPARIN/DEXTROSE 500 ML IV ONE (19:49)
[2018-06-26] MEDS ORDERED: ONDANSETRON 4 MG/2 ML VIAL IVP PRN (20:58)
[2018-06-26] MEDS ORDERED: ACETAMINOPHEN 325 MG TAB PO PRN (20:58)
[2018-06-26] MEDS ORDERED: ONDANSETRON DISINTEGRATING 4 MG TAB PO PRN (20:58)
[2018-06-26] MEDS ORDERED: HEPARIN 10,000 UNIT/10 ML MDV (1,000 UNIT/ML) IVP PRN (21:00)
--- NOTE | 2018-06-26 21:51 | PDGENHP ---
History and Physical - Chief Complaint AV fistula thrombosis - History of Present Illness 63yo F with history of CKD and left arm AV fistula placement last year presents from surgery clinic for management of AV fistula thrombosis. The fistula was placed in anticipiation of dialysis however it hasn't been used. Patient states she no longer felt thrill on fistula about a week ago. Came to ED on 06/23 for redness at fistula site. An ultrasound showed a "fresh thrombus." She was also diagnosed with cellulitis and sent home on keflex with follow up in surgery clinic. She denies fevers, chills, shortness of breath, nausea, leg swelling. In the ED, she was started on IV heparin without a bolus. Of note, she reports 2 recent episodes of blood loss. She is unable to discern whether this was vaginal or rectal bleeding. She is post-menopausal. A rectal exam was performed in the ED and no hemorrhoids were visualized or palpated. Case discussed with ED physician Danyel Thomas. History Information - Allergies/Home Medication List Allergies/Adverse Reactions: clindamycin Allergy (Verified 06/23/18 12:06) Penicillins Allergy (Verified 06/23/18 12:06) Home Medications: Cephalexin [Keflex (*)] 500 mg PO TID 06/26/18 [Last Taken 06/26/18 12:00] Diazepam [Valium 5 MG (*)] 2.5 - 5 mg PO DAILY PRN 06/26/18 [Last Taken Unknown] Hydrocodone/Acetaminophen [Hydrocodon-Acetaminophen 5-325] 1 each PO Q6H PRN [Last Taken Unknown] Insulin Detemir [Levemir Flextouch] 50 unit SQ HS 06/26/18 [Last Taken 06/25/18] Levothyroxine [Synthroid 75 mcg (*)] 75 mcg PO DAILY06 06/26/18 [Last Taken ] Lisinopril [Zestril 10 mg (*)] 5 mg PO DAILY 06/26/18 [Last Taken 06/26/18] Nicotine [Nicotine Patch] 1 each TD DAILY 06/26/18 [Last Taken Unknown] Sevelamer Carbonate 800 mg PO BID 06/26/18 [Last Taken 06/26/18] carBAMazepine [Carbamazepine] 200 mg PO DAILY 06/26/18 [Last Taken 06/26/18] carBAMazepine [Carbamazepine] 600 mg PO HS 06/26/18 [Last Taken 06/25/18] fluPHENAZine HCL [FLUPHENAZINE HCL] 10 mg PO HS 06/26/18 [Last Taken 06/25/18] I have personally reviewed and updated: family history, medical history, social history, surgical history - Past Medical History Additional medical history: CKD (followed by Dr Cruz), type 2 diabetes, HTN , hypothyroidism, bipolar disorder - Surgical History Additional surgical history: LUE AV fistula, tubal ligation - Social History Smoking Status: Current every day smoker Alcohol Use: Sober Drug Use: None Additional social history: Lives alone. Has boyfriend. 2 grown children. Review of Systems Review of Systems: ROS: 10pt was reviewed & negative except for what was stated in HPI & below Physical Exam Physical Exam: Temp Pulse Resp BP Pulse Ox 36.5 C 67 18 133/79 H 95 06/26/18 21:47 06/26/18 21:47 06/26/18 21:47 06/26/18 21:47 06/26/18 21:47 Constitutional: no apparent distress, appears nourished, not in pain Eyes: PERRL, anicteric sclera, EOMI Ears, Nose, Mouth, Throat: moist mucous membranes, hearing normal, ears appear normal, no oral mucosal ulcers Cardiovascular: regular rate and rhythym, no murmur, rub, or gallop, No edema Respiratory: no respiratory distress, no rales or rhonchi, clear to auscultation Gastrointestinal: normoactive bowel sounds, soft, non-tender abdomen, no palpable masses Genitourinary: no bladder fullness, no bladder tenderness Skin: warm, no fluctuance, no induration, other (minimal erythema over LUE AV fistula) Musculoskeletal: full muscle strength, no muscle tenderness, normal joint ROM, no joint effusions Neurologic: AAOx3 Psychiatric: interacting appropriately Lab Data & Imaging Review 06/26/18 19:15 06/26/18 19:15 WBC 6.68 10^3/uL (3.80-9.50) 06/26/18 19:15 RBC 3.86 10^6/uL (4.18-5.33) L 06/26/18 19:15 Hgb 12.1 g/dL (12.6-16.3) L 06/26/18 19:15 Hct 35.7 % (38.0-47.0) L 06/26/18 19:15 MCV 92.5 fL (81.5-99.8) 06/26/18 19:15 MCH 31.3 pg (27.9-34.1) 06/26/18 19:15 MCHC 33.9 g/dL (32.4-36.7) 06/26/18 19:15 RDW 12.8 % (11.5-15.2) 06/26/18 19:15 Plt Count 190 10^3/uL (150-400) 06/26/18 19:15 MPV 10.0 fL (8.7-11.7) 06/26/18 19:15 Neut % (Auto) 58.6 % (39.3-74.2) 06/26/18 19:15 Lymph % (Auto) 29.6 % (15.0-45.0) 06/26/18 19:15 [place] % (Auto) 8.4 % (4.5-13.0) 06/26/18 19:15 Eos % (Auto) 2.4 % (0.6-7.6) 06/26/18 19:15 Baso % (Auto) 0.6 % (0.3-1.7) 06/26/18 19:15 Nucleat RBC Rel Count 0.0 % (0.0-0.2) 06/26/18 19:15 Absolute Neuts (auto) 3.91 10^3/uL (1.70-6.50) 06/26/18 19:15 Absolute Lymphs (auto) 1.98 10^3/uL (1.00-3.00) 06/26/18 19:15 Absolute Monos (auto) 0.56 10^3/uL (0.30-0.80) 06/26/18 19:15 Absolute Eos (auto) 0.16 10^3/uL (0.03-0.40) 06/26/18 19:15 Absolute Basos (auto) 0.04 10^3/uL (0.02-0.10) 06/26/18 19:15 Absolute Nucleated RBC 0.00 10^3/uL (0-0.01) 06/26/18 19:15 Immature Gran % 0.4 % (0.0-1.1) 06/26/18 19:15 Immature Gran # 0.03 10^3/uL (0.00-0.10) 06/26/18 19:15 PT 13.0 SEC (12.0-15.0) 06/26/18 19:15 INR 1.02 (0.83-1.16) 06/26/18 19:15 APTT 28.4 SEC (23.0-38.0) 06/26/18 19:15 Sodium 137 mEq/L (135-145) 06/26/18 19:15 Potassium 4.3 mEq/L (3.5-5.2) 06/26/18 19:15 Chloride 108 mEq/L (97-110) 06/26/18 19:15 Carbon Dioxide 18 mEq/l (22-31) L 06/26/18 19:15 Anion Gap 11 mEq/L (6-14) 06/26/18 19:15 BUN 37 mg/dL (7-23) H 06/26/18 19:15 Creatinine 2.6 mg/dL (0.6-1.0) H 06/26/18 19:15 Estimated GFR 18 06/26/18 19:15 Glucose 88 mg/dL (70-100) 06/26/18 19:15 Calcium 9.2 mg/dL (8.5-10.4) 06/26/18 19:15 Stool Occult Bld Scrn NEGATIVE (NEGATIVE) 06/26/18 19:37 Assessment & Plan Assessment: 63yo F with history of CKD and left arm AV fistula placement last year presents from surgery clinic for management of AV fistula thrombosis. Plan: #LUE AV fistula thrombosis - IV heparin - Placed consult for IR thrombolysis - Surgery aware of admission #? bleeding: Patient unsure if vaginal or rectal. Rectal exam in ED negative. Stool occult and UA negative for blood. H/H stable. - Pelvic ultrasound #LUE cellulitis: Very mild erythema - Continue keflex (started 06/23) #CKD: Creatinine near baseline. No indication for HD at present. - Alert nephrology of admission in AM #Anemia: Likely of renal disease. Monitor. #Bipolar disorder: Continue tegretol and fluphenazine. #Diabetes: Reduced home glargine from 50 to 30u qhs. ACHS glucose checks, SSI. Diet: NPO at midnight Code: full Dispo: Admit under observation
[2018-06-26] MEDS ORDERED: carBAMazepine 200 MG TAB PO ONE (22:30)
[2018-06-26] MEDS ORDERED: DIAZEPAM 5 MG TAB PO PRN (23:28)
[2018-06-26] MEDS ORDERED: carBAMazepine 200 MG TAB PO SCH (23:30)
[2018-06-26] MEDS ORDERED: D50W 25 GM/50 ML SYR IVP PRN (23:31)
[2018-06-27 03:21] LABS: PLATELET COUNT 170 10^3/uL (150-400)
[2018-06-27] MEDS: LEVOTHYROXINE 75 MCG TAB PO SCH (06:17)
[2018-06-27] MEDS ORDERED: CEPHALEXIN 500 MG CAP PO SCH (09:00)
[2018-06-27] MEDS: INSULIN LISPRO 100 UNIT/ML SC SCH ×3 (09:16→17:44)
[2018-06-27] MEDS: HYDROCODONE/APAP 5/325 TAB PO PRN ×2 (09:17→21:12)
[2018-06-27] MEDS: SEVELAMER HCL 800 MG TAB PO SCH ×2 (09:17→21:12)
[2018-06-27] MEDS: carBAMazepine 200 MG TAB PO SCH ×3 (09:18→21:16)
[2018-06-27] MEDS ORDERED: MIDAZOLAM 2 MG/2 ML VIAL IVP PRN (09:27)
[2018-06-27] MEDS ORDERED: MEPERIDINE 25 MG/ML SYR IVP PRN (09:27)
[2018-06-27] MEDS ORDERED: fentaNYL 100 MCG/2 ML INJ IVP PRN (09:27)
[2018-06-27] MEDS ORDERED: ALTEPLASE 2 MG VIAL IVP PRN (09:27)
[2018-06-27] MEDS ORDERED: FLUMAZENIL 0.5 MG/5 ML MDV IVP PRN (09:27)
[2018-06-27] MEDS ORDERED: PROTAMINE SULFATE 50 MG/5 ML VIAL IVP PRN (09:27)
[2018-06-27] MEDS ORDERED: NALOXONE HCL 0.4 MG/ML INJ IVP PRN (09:27)
[2018-06-27] MEDS ORDERED: HEPARIN 10,000 UNIT/10 ML MDV (1,000 UNIT/ML) IVP PRN (09:27)
--- NOTE | 2018-06-27 09:28 | PDCONSULT ---
Nib Inspector Note: Renal Consult Note - Chief Complaint AV fistula thrombosis - History of Present Illness The patient is a 63 y/o F with a known h/o advanced CKD not yet on dialysis under the care of Dr. Kian Cruz who presented to the ED earlier this week for presumed L arm phlebitis where she has a mature fistula and was sent home on Keflex to follow-up with Dr. Kwok. She then followed up with Dr. Kwok and an US showed a thrombus, and she was admitted yesterday for a heparin gtt. She has also c/o gross hematuria over the past week and had an appointment with urology yesterday, however it was cancelled. It was noted that her hematuria was 2-3 RBC's on UA and may have been vaginal or rectal bleeding, she is post- menopausal. At present the patient is still having arm pain but denies fevers and other infectious symptoms. She states that she has had the "bleeding" 3x and also had a vaginal US yesterday. Denies other ROS but is requesting a nicotine patch and agrees she needs to stop smoking. History Information - Allergies/Home Medication List clindamycin, Penicillins Home Medications: Cephalexin [Keflex (*)] 500 mg PO TID 06/26/18 [Last Taken 06/26/18 12:00] Diazepam [Valium 5 MG (*)] 2.5 - 5 mg PO DAILY PRN 06/26/18 [Last Taken Unknown] Hydrocodone/Acetaminophen [Hydrocodon-Acetaminophen 5-325] 1 each PO Q6H PRN [Last Taken Unknown] Insulin Detemir [Levemir Flextouch] 50 unit SQ HS 06/26/18 [Last Taken 06/25/18] Levothyroxine [Synthroid 75 mcg (*)] 75 mcg PO DAILY06 06/26/18 [Last Taken ] Lisinopril [Zestril 10 mg (*)] 5 mg PO DAILY 06/26/18 [Last Taken 06/26/18] Nicotine [Nicotine Patch] 1 each TD DAILY 06/26/18 [Last Taken Unknown] Sevelamer Carbonate 800 mg PO BID 06/26/18 [Last Taken 06/26/18] carBAMazepine [Carbamazepine] 200 mg PO DAILY 06/26/18 [Last Taken 06/26/18] carBAMazepine [Carbamazepine] 600 mg PO HS 06/26/18 [Last Taken 06/25/18] fluPHENAZine HCL [FLUPHENAZINE HCL] 10 mg PO HS 06/26/18 [Last Taken 06/25/18] - Past Medical History: DM2, HTN, hypothyroidism, bipolar disorder - Surgical History LUE AV fistula, tubal ligation - Social History Smoking Status: Current every day smoker Alcohol Use: Sober Drug Use: None Additional social history: Lives alone. Has boyfriend. 2 grown children. Review of Systems:10pt was reviewed & negative except for what was stated in HPI & below Physical Exam Temp Pulse Resp BP Pulse Ox 36.8 C 66 16 129/61 H 94 06/27/18 08:19 06/27/18 08:19 06/27/18 08:19 06/27/18 08:19 06/27/18 08:19 General: NAD, oriented x 3 Neck: Supple, no thyromegaly HEENT: MMM, EOMI CV: RRR, no murmur or rub LUNGS: CTA b/l, no wheezing ABD: Soft, NT, ND, +BS EXT: LUE AVF, some swelling no erythema SKIN: No rashes NEURO: Non-focal WBC 5.75 10^3/uL (3.80-9.50) 06/27/18 03:00 RBC 3.43 10^6/uL (4.18-5.33) L 06/27/18 03:00 Hgb 11.1 g/dL (12.6-16.3) L 06/27/18 03:00 Hct 33.3 % (38.0-47.0) L 06/27/18 03:00 MCV 97.1 fL (81.5-99.8) 06/27/18 03:00 MCH 32.4 pg (27.9-34.1) 06/27/18 03:00 MCHC 33.3 g/dL (32.4-36.7) 06/27/18 03:00 RDW 12.8 % (11.5-15.2) 06/27/18 03:00 Plt Count 170 10^3/uL (150-400) 06/27/18 03:00 MPV 10.2 fL (8.7-11.7) 06/27/18 03:00 Neut % (Auto) 49.1 % (39.3-74.2) 06/27/18 03:00 Lymph % (Auto) 37.4 % (15.0-45.0) 06/27/18 03:00 [place] % (Auto) 9.0 % (4.5-13.0) 06/27/18 03:00 Eos % (Auto) 3.5 % (0.6-7.6) 06/27/18 03:00 Baso % (Auto) 0.7 % (0.3-1.7) 06/27/18 03:00 Nucleat RBC Rel Count 0.0 % (0.0-0.2) 06/27/18 03:00 Absolute Neuts (auto) 2.82 10^3/uL (1.70-6.50) 06/27/18 03:00 Absolute Lymphs (auto) 2.15 10^3/uL (1.00-3.00) 06/27/18 03:00 Absolute Monos (auto) 0.52 10^3/uL (0.30-0.80) 06/27/18 03:00 Absolute Eos (auto) 0.20 10^3/uL (0.03-0.40) 06/27/18 03:00 Absolute Basos (auto) 0.04 10^3/uL (0.02-0.10) 06/27/18 03:00 Absolute Nucleated RBC 0.00 10^3/uL (0-0.01) 06/27/18 03:00 Immature Gran % 0.3 % (0.0-1.1) 06/27/18 03:00 Immature Gran # 0.02 10^3/uL (0.00-0.10) 06/27/18 03:00 PT 13.0 SEC (12.0-15.0) 06/26/18 19:15 INR 1.02 (0.83-1.16) 06/26/18 19:15 APTT 28.4 SEC (23.0-38.0) 06/26/18 19:15 Heparin Anti-Xa, Unfract 0.49 IU/mL (0.32-0.67) 06/27/18 02:55 Sodium 143 mEq/L (135-145) 06/27/18 03:00 Potassium 4.3 mEq/L (3.5-5.2) 06/27/18 03:00 Chloride 116 mEq/L (97-110) H 06/27/18 03:00 Carbon Dioxide 19 mEq/l (22-31) L 06/27/18 03:00 Anion Gap 8 mEq/L (6-14) 06/27/18 03:00 BUN 37 mg/dL (7-23) H 06/27/18 03:00 Creatinine 2.6 mg/dL (0.6-1.0) H 06/27/18 03:00 Estimated GFR 18 06/27/18 03:00 Glucose 97 mg/dL (70-100) 06/27/18 03:00 POC Glucose 100 mg/dL (70-100) 06/27/18 08:11 Calcium 8.8 mg/dL (8.5-10.4) 06/27/18 03:00 Phosphorus 4.9 mg/dL (2.5-4.5) H 06/27/18 03:00 Urine Color PALE YELLOW 06/26/18 22:30 Urine Appearance CLEAR 06/26/18 22:30 Urine pH 6.0 (5.0-7.5) 06/26/18 22:30 Ur Specific [place] 1.003 (1.002-1.030) 06/26/18 22:30 Urine Protein NEGATIVE (NEGATIVE) 06/26/18 22:30 Urine Ketones NEGATIVE (NEGATIVE) 06/26/18 22:30 Urine Blood NEGATIVE (NEGATIVE) 06/26/18 22:30 Urine Nitrate NEGATIVE (NEGATIVE) 06/26/18 22:30 Urine Bilirubin NEGATIVE (NEGATIVE) 06/26/18 22:30 Urine Urobilinogen NEGATIVE EU (0.2-1.0) 06/26/18 22:30 Ur Leukocyte Esterase NEGATIVE (NEGATIVE) 06/26/18 22:30 Urine Glucose NEGATIVE (NEGATIVE) 06/26/18 22:30 Stool Occult Bld Scrn NEGATIVE (NEGATIVE) 06/26/18 19:37 Imaging: Assessment/Plan: 63 y/o F with a known h/o CKD Stage IV with mature AVF with recent clot. CKD IV -Cr 2.6, near baseline with eGFR 18 -no symptoms of uremia -will have f/u with Dr. Cruz as outpatient Hematuria -negative UA on admission -will f/u with urology for cystoscopy given h/o smoking -monitor CBC on TPA Access -TPA per surgery -smoking cessation HTN/vol -BP at goal on home meds -would avoid fluids if possible BMD -on phos binder, phos at goal -renal non-HD diet Consult appreciated, please contact if further questions #[phone]. Sajan Escoto DO [facility]
[2018-06-27] MEDS ORDERED: NS 1,000 ML IV SCH (09:30)
--- NOTE | 2018-06-27 10:22 | GCON ---
[f rep st] CONSULTATION CHIEF COMPLAINT: Thrombosed AV fistula. HISTORY OF PRESENT ILLNESS: The patient is a 63-year-old female with chronic kidney disease who is s tatus post left brachial-basilic AV fistula with transposition created on 02/12/2017. 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 She has never used her fistula for dialysis. Four days ago, she went to the emergency room complaining of increased pain in her left upper arm. An ul trasound obtained in the emergency department revealed a mostly occluded left upper arm fistula with what appeared to be a fresh thrombus. She was placed on a course of Keflex and advised to follow up in our office. She presented to our office yesterday reporting that her symptoms of pain and swellin g were improved, but she still could not feel flow through her fistula. She is now admitted to the [facility] to undergo catheter directed thrombolysis of the fistula, as well as an IV heparin drip. PAST MEDICAL HISTORY: Bipolar disorder, diabetes type 2, hypertension, hypothyroidism, chronic renal disease. PAST SURGICAL HISTORY: Tubal ligation, AV fistula creation x2. MEDICATIONS: Epitol 200 mg, Levemir insulin, levothyroxine, aspirin 81 mg, Prolixin, Renvela, sodium bicarbonate, Valium. ALLERGIES: Penicillin, erythromycin. FAMILY MEDICAL HISTORY: Noncontributory. SOCIAL HISTORY: She is a current everyday smoker. She does not drink alcohol and she denies use of recreational drugs. REVIEW OF SYSTEMS: Ten-point review of systems negative, except for what is in the HPI. PHYSICAL EXAM: GENERAL: Well-appearing female resting in hospital bed in no acute distress. HEENT: Normocephalic, atraumatic. No gross hearing deficit. Mucous membranes moist, PERRLA. CARDIAC: R egular rate and rhythm. No clicks or rubs. CHEST: Clear to auscultation bilaterally. No crackles, rales, or rhonchi. ABDOMEN: Soft, nondistended, nontender. SKIN: Warm and dry. No rashes or jau ndice. NEUROLOGIC: Alert, oriented x3. PSYCHIATRIC: Appropriate mood and affect. LEFT UPPER EXTR EMITY: Firm, rope-like mass extending from the antecubital fossa up the course of the upper arm. Pa lpable pulse within fistula; however, no thrill could be heard on auscultation, nor is there flow see n on ultrasound. It is tender to palpation. IMPRESSION AND PLAN: This is a 63-year-old female with an arteriovenous fistula that was placed abou t a year and a half ago that is now unfortunately thrombosed. She is admitted for intravenous hepari n drip, as well as a catheter directed thrombolysis of the arteriovenous fistula. Of note, the patie nt has reported recent hematuria. Her UA upon this admission was normal. She also underwent a pelvi c/renal ultrasound that was also normal. Her bleeding could be due to hemorrhoid bleeding, although it is unclear. In any case, we will proceed with catheter directed thrombolysis of the arteriovenous fistula. We have discussed all risks and options, the patient wishes to proceed.. /[id number]/MODL
[2018-06-27] MEDS ORDERED: MIDAZOLAM 2 MG/2 ML VIAL ONE ×2 (11:47→13:38)
[2018-06-27] MEDS ORDERED: FLUMAZENIL 0.5 MG/5 ML MDV IVP ONE (11:47)
[2018-06-27] MEDS ORDERED: NALOXONE HCL 0.4 MG/ML INJ ONE (11:47)
[2018-06-27] MEDS ORDERED: fentaNYL 100 MCG/2 ML INJ ONE ×2 (11:48→13:38)
--- NOTE | 2018-06-27 12:27 | PDPROPOC ---
Sedation Plan of Care ASA Classification: ASA 2 Mallampati Score: Class 2 Mallampati Reference Image:
[2018-06-27] MEDS ORDERED: ALTEPLASE 2 MG VIAL ONE ×2 (12:31→12:51)
[2018-06-27] MEDS ORDERED: ATROPINE SULFATE 1 MG/ML VIAL ONE (12:52)
[2018-06-27] MEDS ORDERED: IOPAMIDOL (ISOVUE-300) 100 ML BTL ONE (14:30)
--- NOTE | 2018-06-27 16:15 | HOSPPROG ---
Hospitalist Progress Note Assessment/Plan: 63yo F with history of CKD and left arm AV fistula placement last year presents from surgery clinic for management of AV fistula thrombosis. Plan: #LUE AV fistula thrombosis - IV heparin - Plan for for thrombolysis this afternoon #? bleeding: Patient unsure if vaginal or rectal. Rectal exam in ED negative. Stool occult and UA negative for blood. H/H stable. - Pelvic ultrasound without any acute abnormalities #LUE cellulitis: Very mild erythema - Continue keflex (started 06/23) #CKD: Creatinine near baseline. No indication for HD at present. - Nephrology consulted this AM, appreciate recs, continue Phos binder, will f /u with Dr. Cruz as outpatient #Anemia: Likely of renal disease. Monitor. #Bipolar disorder: Continue tegretol and fluphenazine. #Diabetes: Reduced home glargine from 50 to 30u qhs. ACHS glucose checks, SSI. Diet: NPO for procedure Code: full Dispo: Pending clinical course Subjective: Patient reports no complaints this AM Objective: Vital Signs Temp Pulse Resp BP Pulse Ox 37.1 C 66 16 106/54 L 94 06/27/18 15:08 06/27/18 11:42 06/27/18 11:42 06/27/18 15:15 06/27/18 15:15 Laboratory Results 06/27/18 03:00 06/27/18 03:00 06/26/18 06/27/18 06/28/18 05:59 05:59 05:59 Intake Total 1300 680 Output Total 800 1500 Balance 500 -820 PT 13.0 SEC (12.0-15.0) 06/26/18 19:15 INR 1.02 (0.83-1.16) 06/26/18 19:15 - Physical Exam Constitutional: no apparent distress Eyes: PERRL Ears, Nose, Mouth, Throat: moist mucous membranes Cardiovascular: regular rate and rhythym Respiratory: no respiratory distress Gastrointestinal: soft, non-tender abdomen Skin: warm Neurologic: AAOx3 Psychiatric: interacting appropriately ICD10 Worksheet Patient Problems: Problems Problem Status Onset Clotted renal dialysis AV graft Acute
[2018-06-27] MEDS: NICOTINE 14 MG/24 HR PATCH TD SCH (17:40)
[2018-06-27] MEDS: CEPHALEXIN 250 MG CAP PO SCH ×2 (17:40→21:11)
--- NOTE | 2018-06-27 19:53 | PDMN ---
Medical Necessity Medical necessity: [facility] M515 infection, thrombosis or other complication of intravenous device- A-3 days 63yo F found to have nearly occlusive thrombus throughout fistula. -- req IV heparin and thrombolysis status changed to INPT 06/27 for ongoing med nec care, further monitoring, eval and tx of AV thrombosis > 2 MN.
[2018-06-27] MEDS ORDERED: NON-FORMULARY NEW DRUG (Insulin Detemir [Levemir Flextouch] 50 UNIT) SQ SCH (21:00)
[2018-06-27] MEDS: INSULIN GLARGINE 100 UNITS/ML UNIT SC SCH (21:56)
[2018-06-28] MEDS: LEVOTHYROXINE 75 MCG TAB PO SCH (06:48)
[2018-06-28] MEDS: INSULIN LISPRO 100 UNIT/ML SC SCH ×3 (07:45→17:57)
--- NOTE | 2018-06-28 08:42 | SOAPPROG ---
TE[facility] Progress Note Assessment/Plan: Assessment: COMFORTABLE/ STILL ON HEPARIN/ FAINT THRILL IN AVF TODAY BUT THROMBOLYSIS LARGELY UNSUCCESSFUL QUESTION IF WE CAN SAVE AVF Plan:VEIN MAPPING TODAY 06/28/18 08:40 Objective: Vital Signs Temp Pulse Resp BP Pulse Ox 36.5 C 63 18 110/70 92 06/28/18 07:33 06/28/18 07:33 06/28/18 07:33 06/28/18 07:33 06/28/18 07:33 Laboratory Results 06/28/18 05:08 06/27/18 06/28/18 06/29/18 05:59 05:59 05:59 Intake Total 230 Output Total 3150 Balance -2920 PT 13.0 SEC (12.0-15.0) 06/26/18 19:15 INR 1.02 (0.83-1.16) 06/26/18 19:15 ICD10 Worksheet Patient Problems: Problems Problem Status Onset Clotted renal dialysis AV graft Acute
[2018-06-28] MEDS: CEPHALEXIN 250 MG CAP PO SCH ×3 (09:11→20:43)
[2018-06-28] MEDS: SEVELAMER HCL 800 MG TAB PO SCH ×2 (09:11→20:44)
[2018-06-28] MEDS: HYDROCODONE/APAP 5/325 TAB PO PRN ×2 (09:11→20:43)
[2018-06-28] MEDS: NICOTINE 14 MG/24 HR PATCH TD SCH (10:06)
--- NOTE | 2018-06-28 10:07 | ASMTCMCOM ---
CM Note CM Note Notes: Met with Pt and Chart reviewed for discharge. Pt is a 63 yr old adm with upper Lt arm AV fistula Thrombus. was seen 06/23 for redness and placed on keflex but returned to the ER. Pt had a Lt AV fistula Eval and Angioplasty yesterday. Pt has Hx Bipolar & Diabetes. PT owns her own trailer and will return there with her boyfriend. CM available if needs arise. PLAN: Discharge home Independently w/ boyfriend Date Signed: 06/28/2018 10:07 AM Electronically Signed By:Frances Howell
--- NOTE | 2018-06-28 14:13 | SOAPPROG ---
TE[facility] Progress Note Assessment/Plan: Assessment/Plan: 63 y/o F with a known h/o CKD Stage IV with mature AVF which has clotted and is unresponsive to TPA and angioplasty. CKD IV -Cr 2.6, near baseline with eGFR 18 -no symptoms of uremia -will have f/u with Dr. Cruz as outpatient -would check BMP in am given contrast dosing yesterday Hematuria -negative UA on admission -will f/u with urology for cystoscopy given h/o smoking -monitor CBC on TPA Access -no response to TPA or angio per IR given likely longstanding clot with fibrosis at narrow venous anastomosis site -smoking cessation -vein mapping today per Dr. Kwok HTN/vol -BP at goal on home meds -would avoid fluids if possible BMD -on phos binder, phos at goal -renal non-HD diet Will continue to follow, please contact if ?'s. #[phone]. 06/28/18 14:11 Subjective: Long discussion with IR yesterday and patient has fibrotic narrowed L venous anastomosis unable to open. Objective: Vital Signs Temp Pulse Resp BP Pulse Ox 36.9 C 60 18 107/62 94 06/28/18 11:31 06/28/18 11:31 06/28/18 11:31 06/28/18 11:31 06/28/18 11:31 Laboratory Results 06/28/18 05:08 06/27/18 06/28/18 06/29/18 05:59 05:59 05:59 Intake Total 230 Output Total 3150 Balance -2920 PT 13.0 SEC (12.0-15.0) 06/26/18 19:15 INR 1.02 (0.83-1.16) 06/26/18 19:15 Physical Exam - Physical Exam General Appearance: WD/WN, alert, no apparent distress EENT: PERRL/EOMI Neck: non-tender, full range of motion, supple Respiratory: chest non-tender, lungs clear Cardiac/Chest: normal peripheral pulses, regular rate, rhythm Abdomen: normal bowel sounds, non-tender, soft Skin: normal color, warm/dry Extremities: normal range of motion, non-tender Neuro/Psych: no motor/sensory deficits, alert, normal mood/affect, oriented x 3 ICD10 Worksheet Patient Problems: Problems Problem Status Onset Clotted renal dialysis AV graft Acute
--- NOTE | 2018-06-28 15:28 | HOSPPROG ---
Hospitalist Progress Note Assessment/Plan: 63yo F with history of CKD and left arm AV fistula placement last year presents from surgery clinic for management of AV fistula thrombosis. Plan: #LUE AV fistula thrombosis - Continue IV heparin - Attempt at thrombolysis on 06/27 without success - Vein mapping with Dr. Kwok today #? bleeding: Patient unsure if vaginal or rectal. Rectal exam in ED negative. Stool occult and UA negative for blood. H/H stable. - Pelvic ultrasound without any acute abnormalities - Will need f/u as outpatient with Urology #LUE cellulitis: Very mild erythema - Continue keflex (started 06/23) #CKD: Creatinine near baseline. No indication for HD at present. - Nephrology consulted, continue Phos binder, will f/u with Dr. Cruz as outpatient, repeat BMP in the AM due to contrast #Anemia: Likely of renal disease. Monitor. #Bipolar disorder: Continue tegretol and fluphenazine. #Diabetes: Reduced home glargine from 50 to 30u qhs. ACHS glucose checks, SSI. Diet: Renal Code: full Dispo: Pending clinical course Subjective: Patient reports no complaints this AM Objective: Vital Signs Temp Pulse Resp BP Pulse Ox 36.9 C 60 18 107/62 94 06/28/18 11:31 06/28/18 11:31 06/28/18 11:31 06/28/18 11:31 06/28/18 11:31 Laboratory Results 06/28/18 05:08 06/27/18 06/28/18 06/29/18 05:59 05:59 05:59 Intake Total 230 Output Total 3150 Balance -2920 PT 13.0 SEC (12.0-15.0) 06/26/18 19:15 INR 1.02 (0.83-1.16) 06/26/18 19:15 - Physical Exam Constitutional: no apparent distress Eyes: PERRL Ears, Nose, Mouth, Throat: moist mucous membranes Cardiovascular: regular rate and rhythym Respiratory: no respiratory distress Gastrointestinal: soft, non-tender abdomen Skin: warm, erythema, induration Musculoskeletal: pain with ROM Neurologic: AAOx3 Psychiatric: interacting appropriately ICD10 Worksheet Patient Problems: Problems Problem Status Onset Clotted renal dialysis AV graft Acute
[2018-06-28] MEDS: HEPARIN/DEXTROSE 500 ML IV SCH (16:13)
[2018-06-28] MEDS: carBAMazepine 200 MG TAB PO SCH (20:45)
[2018-06-28] MEDS: INSULIN GLARGINE 100 UNITS/ML UNIT SC SCH (21:01)
[2018-06-29] MEDS: LEVOTHYROXINE 75 MCG TAB PO SCH (06:02)
[2018-06-29] MEDS: carBAMazepine 200 MG TAB PO SCH (06:02)
[2018-06-29] MEDS: CEPHALEXIN 250 MG CAP PO SCH (08:35)
[2018-06-29] MEDS: SEVELAMER HCL 800 MG TAB PO SCH (08:35)
[2018-06-29] MEDS: INSULIN LISPRO 100 UNIT/ML SC SCH (08:49)
[2018-06-29] MEDS: NICOTINE 14 MG/24 HR PATCH TD SCH ×2 (08:49→12:50)
[2018-06-29] MEDS: HEPARIN/DEXTROSE 500 ML IV SCH (08:57)
[2018-06-29] MEDS: HYDROCODONE/APAP 5/325 TAB PO PRN (11:03)
--- NOTE | 2018-06-29 12:13 | SOAPPROG ---
SOAP Progress Note Assessment/Plan: Assessment/Plan: 63 y/o F with a known h/o CKD Stage IV with mature AVF which has clotted and is unresponsive to TPA and angioplasty. CKD IV -Cr 2.9, up from baseline 2.6 -may be 2/2 to contrast and/or dehydration -please order labs as outpatient this week, will arrange f/u with Dr. Cruz of [place] in 4-6 weeks Hematuria -negative UA on admission -will f/u with urology for cystoscopy given h/o smoking -CBC stable Access -no response to TPA or angio per IR given likely longstanding clot with fibrosis at narrow venous anastomosis site -smoking cessation -vein mapping today per Dr. Kwok and unable to save fistula -will discuss further access as outpatient HTN/vol -BP at goal on home meds BMD -on phos binder, phos at goal -renal non-HD diet Ok to discharge, d/w hospitalist. Will continue to follow, please contact if ?'s. #[phone]. 06/29/18 12:19 Subjective: Patient feeling well this am. Ready to go home. Objective: Vital Signs Temp Pulse Resp BP Pulse Ox 36.5 C 62 15 123/64 H 94 06/29/18 07:33 06/29/18 07:33 06/29/18 07:33 06/29/18 07:33 06/29/18 07:33 Laboratory Results 06/29/18 06:10 06/29/18 06:10 06/28/18 06/29/18 06/30/18 05:59 05:59 05:59 Intake Total 230 1788 912 Output Total 3150 2400 1500 Balance -2920 -612 -588 PT 13.0 SEC (12.0-15.0) 06/26/18 19:15 INR 1.02 (0.83-1.16) 06/26/18 19:15 Physical Exam - Physical Exam General Appearance: WD/WN, alert, no apparent distress EENT: PERRL/EOMI, pharynx normal Neck: non-tender, full range of motion, supple Respiratory: chest non-tender, lungs clear, normal breath sounds Cardiac/Chest: normal peripheral pulses, regular rate, rhythm Abdomen: normal bowel sounds, non-tender, soft Skin: normal color Extremities: normal range of motion, non-tender Neuro/Psych: no motor/sensory deficits, alert, normal mood/affect ICD10 Worksheet Patient Problems: Problems Problem Status Onset Clotted renal dialysis AV graft Acute
[2018-06-29 12:16] VITALS: BP 118/104
--- NOTE | 2018-06-29 15:12 | PDDCSUM ---
Discharge Summary Discharge Summary: Date of Admission: 06/27/2018 Date of Discharge: 06/29/2018 Consults: Nephrology, Surgery, IR Procedures: Attempted thrombolysis Followup: Nephrology, PCP Hospital Course problem List: 63yo F with history of CKD and left arm AV fistula placement last year presents from surgery clinic for management of AV fistula thrombosis. #LUE AV fistula thrombosis - Initially started on Heparin gtt - Attempt at thrombolysis on 06/27 without success given likely longstanding clot with fibrosis at narrow venous anastomosis site -vein mapping per Dr. Kwok and unable to save fistula -Will f/u with Nephrology as outpatient to discuss further access #? bleeding: Patient unsure if vaginal or rectal. Rectal exam in ED negative. Stool occult and UA negative for blood. H/H stable. - Pelvic ultrasound without any acute abnormalities - Will need f/u as outpatient with Urology #LUE cellulitis: Very mild erythema - Continue keflex (started 06/23) #CKD: Creatinine near baseline. No indication for HD at present. - Nephrology consulted, continue Phos binder, will f/u with Dr. Cruz as outpatient #Anemia: Likely of renal disease. Monitor. #Bipolar disorder: Continue tegretol and fluphenazine. #Diabetes: Reduced home glargine from 50 to 30u qhs. ACHS glucose checks, SSI. Time spent on discharge was >35 minutes with >50% of time spent on patient education and counseling.
== END 2018-06-29 13:05 | disposition home or self-care (01) | DRG 315 ==
LOC: F1N 06-27 02:28 → OBSVTOIN 06-27 14:59
PROVIDERS: ADMIT Internal Medicine; ATTEND Internal Medicine
DX: T82.868A Thrombosis due to vascular prosthetic devices, implants and grafts, initial encounter (principal); I12.9 Hypertensive chronic kidney disease with stage 1 through stage 4 chronic kidney disease, or unspecified chronic kidney disease; N18.4 Chronic kidney disease, stage 4 (severe); L03.114 Cellulitis of left upper limb; D63.1 Anemia in chronic kidney disease; F31.9 Bipolar disorder, unspecified; E11.9 Type 2 diabetes mellitus without complications; E86.9 Volume depletion, unspecified; E03.9 Hypothyroidism, unspecified; Z72.0 Tobacco use; Z88.0 Allergy status to penicillin
CPT/HCPCS: 85520-90; 96374; C1725; C1769; C1894; G0378; J0461; J1644; J1815; J2250; J2310; J2997; J3010; Q9967